=== PATIENT | male | born 2005 | race Two or more races ===

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

== ENCOUNTER 2024-06-06 10:31 | Emergency (ER) | payer SELFPAY ==
[~2024-06-06] VITALS: Ht 177.8 cm; Wt 80.2 kg
[2024-06-06 11:01] VITALS: BP 128/72; PULSE 88; RESP 16; TEMP 98.9; O2SAT 98
[2024-06-06] MEDS ORDERED: IBUP-1454 PO (11:32)
== END 2024-06-06 11:38 | disposition home or self-care (01) ==
LOC: ER 10:31
DX: S93.491A Sprain of other ligament of right ankle, initial encounter (principal); Z79.899 Other long term (current) drug therapy; X50.1XXA Overexertion from prolonged static or awkward postures, initial encounter; Y93.67 Activity, basketball; Y92.89 Other specified places as the place of occurrence of the external cause; Y99.8 Other external cause status
CPT/HCPCS: 73610